=== PATIENT | female | born 1955 | race Caucasian/White ===

== ENCOUNTER 2018-10-09 11:11 | Outpatient (CLI) | payer OTHER | END 2018-10-09 11:26 | disposition home or self-care (01) | LOC: LAB 11:11 | DX: K62.5 Hemorrhage of anus and rectum (principal); K64.1 Second degree hemorrhoids ==

== ENCOUNTER 2018-10-20 06:00 | Day surgery (SDC) | payer OTHER | END 2018-10-20 11:10 | disposition home or self-care (01) | LOC: AMB-ENDOS 06:00 | DX: D12.0 Benign neoplasm of cecum (principal); D12.3 Benign neoplasm of transverse colon; K64.1 Second degree hemorrhoids ==

== ENCOUNTER 2018-12-03 09:21 | Outpatient (CLI) | payer OTHER | END 2018-12-03 09:35 | disposition home or self-care (01) | LOC: MAMO-SONO 09:21 | DX: N64.4 Mastodynia (principal); N63.10 Unspecified lump in the right breast, unspecified quadrant; N63.20 Unspecified lump in the left breast, unspecified quadrant; Z78.0 Asymptomatic menopausal state; Z78.9 Other specified health status; Z12.31 Encounter for screening mammogram for malignant neoplasm of breast; N60.19 Diffuse cystic mastopathy of unspecified breast ==

== ENCOUNTER → 2018-12-03 | Outpatient (CLI) | payer OTHER | END | disposition home or self-care (01) | LOC: NUCLEAR 10:00 | DX: M85.80 Other specified disorders of bone density and structure, unspecified site (principal) ==

== ENCOUNTER 2019-11-19 09:18 | Outpatient (CLI) | payer OTHER | END 2019-11-19 09:21 | disposition home or self-care (01) | LOC: MAMO-SONO 09:18 | PROVIDERS: ATTEND Obstetrics & Gynecology Gynecology | DX: Z12.31 Encounter for screening mammogram for malignant neoplasm of breast (principal); N60.19 Diffuse cystic mastopathy of unspecified breast; N64.4 Mastodynia; N63.0 Unspecified lump in unspecified breast ==

== ENCOUNTER 2020-12-29 10:42 | Outpatient (CLI) | payer OTHER | END 2020-12-29 10:45 | disposition home or self-care (01) | LOC: MAMO-SONO 10:42 | PROVIDERS: ATTEND Obstetrics & Gynecology Gynecology | DX: Z12.31 Encounter for screening mammogram for malignant neoplasm of breast (principal); N60.19 Diffuse cystic mastopathy of unspecified breast; N64.4 Mastodynia; N63.0 Unspecified lump in unspecified breast ==

== ENCOUNTER 2020-12-29 11:27 | Outpatient (CLI) | payer OTHER | END 2020-12-29 11:31 | disposition home or self-care (01) | LOC: NUCLEAR 11:27 | PROVIDERS: ATTEND Obstetrics & Gynecology Gynecology | DX: M81.0 Age-related osteoporosis without current pathological fracture (principal); Z13.820 Encounter for screening for osteoporosis; N95.1 Menopausal and female climacteric states ==

== ENCOUNTER 2022-01-02 10:31 | Outpatient (CLI) | payer OTHER | END 2022-01-02 10:58 | disposition home or self-care (01) | LOC: MAMO-SONO 10:31 | PROVIDERS: ATTEND Obstetrics & Gynecology Gynecology | DX: Z78.0 Asymptomatic menopausal state (principal); R22.2 Localized swelling, mass and lump, trunk; Z80.3 Family history of malignant neoplasm of breast ==

== ENCOUNTER → 2023-02-21 10:00 | Outpatient (CLI) | payer OTHER | END | disposition home or self-care (01) | LOC: MAMO-SONO 10:00 | PROVIDERS: ATTEND Obstetrics & Gynecology Gynecology | DX: R92.2 Inconclusive mammogram (principal); Z80.3 Family history of malignant neoplasm of breast; Z78.0 Asymptomatic menopausal state; Z12.31 Encounter for screening mammogram for malignant neoplasm of breast ==

== ENCOUNTER 2023-02-21 10:18 | Outpatient (CLI) | payer OTHER | END 2023-02-21 10:20 | disposition home or self-care (01) | LOC: NUCLEAR 10:18 | PROVIDERS: ATTEND Obstetrics & Gynecology Gynecology | DX: M81.0 Age-related osteoporosis without current pathological fracture (principal); M85.80 Other specified disorders of bone density and structure, unspecified site ==

== ENCOUNTER 2025-04-30 09:24 | Outpatient (CLI) | payer OTHER | END 2025-04-30 09:28 | disposition home or self-care (01) | LOC: NUCLEAR 09:24 | DX: M81.0 Age-related osteoporosis without current pathological fracture (principal) ==

== ENCOUNTER 2025-04-30 16:25 | Outpatient (CLI) | payer OTHER | END 2025-04-30 16:35 | disposition home or self-care (01) | LOC: RAD 16:25 | DX: M54.9 Dorsalgia, unspecified (principal); S24.2XXA Injury of nerve root of thoracic spine, initial encounter | CPT/HCPCS: 72147 ==

== ENCOUNTER → 2025-05-03 | Outpatient (CLI) | payer OTHER | END | disposition home or self-care (01) | LOC: TOM 08:15 | DX: J98.4 Other disorders of lung (principal); R91.1 Solitary pulmonary nodule; R91.8 Other nonspecific abnormal finding of lung field | CPT/HCPCS: 71270; Q9965 ==